=== PATIENT | female | born 1950 | race Caucasian/White ===

== ENCOUNTER 2018-02-04 18:46 | Emergency (ER) | payer OTHER ==
--- NOTE | 2018-02-04 19:12 | CPEKG ---
Heart Rate: 71 RR Interval: 845 P-R Interval: 164 QRSD Interval: 74 QT Interval: 384 QTC Interval: 418 P Bramwell: 44 QRS Bramwell: 54 T Wave Bramwell: 41 EKG Severity - OTHERWISE NORMAL ECG - EKG Impression: SINUS RHYTHM EKG Impression: ATRIAL PREMATURE COMPLEX Electronically Signed By: Puja Gallo 05-Feb-2018 08:15:46
[2018-02-04 19:46] LABS: PLATELET COUNT 227 10^3/uL (150-400)
--- NOTE | 2018-02-04 19:56 | EDPHY ---
H & P Stated Complaint: episode dizziness yesterday at yoga, today feels fatigued Time Seen by Provider: 02/04/18 19:05 HPI/ROS: CHIEF COMPLAINT: Elevated blood pressure, vertigo HISTORY OF PRESENT ILLNESS: 67-year-old female presents with elevated blood pressure. Yesterday she was in yoga on the floor, turned her head to the left and had sudden onset of a spinning sensation. She stayed on the floor and the vertigo quickly resolved. She stood up and then had a minor episode of vertigo which quickly resolved. Today she feels fatigued and took a nap earlier today. She took her blood pressure this evening and it was elevated so she came to the emergency department for evaluation. No history of hypertension. Usual blood pressure is 110/70. No headache, chest pain, SOB or other symptoms. 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 - Social History Smoking Status: Never smoked - Physical Exam Exam: General Appearance: Alert, anxious Eyes: Pupils equal and round, no conjunctival pallor ENT, Mouth: Mucous membranes moist Neck: Normal inspection Respiratory: Lungs are clear to auscultation Cardiovascular: Regular rate and rhythm Gastrointestinal: Abdomen is soft and nontender Neurological: A&O, nonfocal, normal gait Skin: Warm and dry, no rash Extremities: Nontender, no pedal edema Psychiatric: Anxious Constitutional: Initial Vital Signs Temperature (C) 37.0 C 02/04/18 18:53 Heart Rate 88 02/04/18 18:53 Respiratory Rate 18 02/04/18 18:53 Blood Pressure 180/120 H 02/04/18 18:53 O2 Sat (%) 99 02/04/18 18:53 O2 Delivery Mode Room Air Allergies/Adverse Reactions: nortriptyline Allergy (Verified 02/04/18 18:52) Home Medications: Medication Instructions Recorded Fosamax 5mg 02/04/18 Medical Decision Making - Diagnostics EKG Interpretation: EKG interpreted by me reveals normal sinus rhythm, rate 71, Pac, no ST or T segment changes. Interpretation: Borderline EKG. ED Course/Re-evaluation: This patient presents after an episode of vertigo yesterday. Neurologic exam is normal and there are no concerning signs or symptoms for a central etiology. Today, blood pressure is running high. I will observe her in the emergency department with serial blood pressure checks. 9:30 p.m.-blood pressure continues to be slightly elevated 170s over 90s.. Discussed with the patient further. She feels "jacked up"and anxious. Ativan 0.5 mg IV given. I will reassess her after Ativan and if her blood pressure continues to be high, we will consider starting blood pressure treatment with Norvasc. 10:30pm-feels much better after IV Ativan and feels like she is back to her normal self. Blood pressure is 133/71. She now tells me that the chest pressure and head pressure have resolved. She tells me that she forgot to tell me that she was having chest pressure. Onset of chest pressure at 5pm. I will repeat troponin (5.5hr after onset of sx) and if this is normal, I will be able to safely exclude ACS and I will discharge her home. Differential Diagnosis: Differential diagnosis includes though not limited to hypertensive emergency such as acute coronary syndrome, ICH or acute renal failure. - Data Points Laboratory Results: Laboratory Results 02/04/18 19:38 02/04/18 19:38 Medications Given: Discontinued Medications Lorazepam (Ativan Injection) 0.5 mg IVP EDNOW ONE Stop: 02/04/18 21:19 Last Admin: 02/04/18 21:26 Dose: 0.5 mg Departure - Departure Disposition: Home, Routine, Self-Care Clinical Impression: Vertigo, Elevated blood pressure reading Condition: Good Instructions: Benign Paroxysmal Positional Vertigo (ED) Additional Instructions: Take and record your blood pressure twice daily. Return for worsening symptoms or any concerns. Follow-up with your physician in 1-2 days for recheck. Referrals: Beryl Hinton MD [Primary Care Provider] - As per Instructions
[2018-02-04] MEDS ORDERED: LORazepam 2 MG/ML INJ IVP ONE (21:18)
[2018-02-04 23:27] VITALS: BP 155/100
== END 2018-02-04 23:25 | disposition home or self-care (01) ==
DX: R42 Dizziness and giddiness (principal); R03.0 Elevated blood-pressure reading, without diagnosis of hypertension
CPT/HCPCS: 93005; 96374; 99284; J2060

== ENCOUNTER → 2019-03-26 | Outpatient (CLI) | payer OTHER | LOC: FIMAGING 13:55 ==